=== PATIENT | female | born 1990 | race Caucasian/White ===

== ENCOUNTER 2018-11-22 12:20 | Emergency (ER) | payer OTHER ==
[2018-11-22 12:38] VITALS: BP 143/84; PULSE 98; RESP 16; TEMP 98.9
--- NOTE | 2018-11-22 13:04 | ED ---
ENT HPI - General Chief complaint: ENT Stated complaint: Poss strep throat Time Seen by Provider: 11/22/18 12:34 Source: patient Mode of arrival: ambulatory Limitations: no limitations - History of Present Illness Initial comments: Patient is a 28-year-old female presenting to the emergency department with a chief complaint of a sore throat. Patient reports her symptoms began about 3 days ago with no improvement. She reports she had a fever home and chills but never actually obtain a temperature. Patient reports she was taking [id number] analgesics minimal improve. Patient denies a cough. Patient does report bilateral clear rhinorrhea but denies any otalgia or sinus tenderness. Patient denies any nausea, vomiting, diarrhea, abdominal pain, back pain, chest pain, shortness of breath, cough or a rash. Patient denies any changes in voice. Patient denies any drooling or difficulty breathing. - Related Data Previous Rx's Medication Instructions Recorded Amoxicillin 500 mg PO BID #20 capsule 11/22/18 Allergies Allergy/AdvReac Type Severity Reaction Status Date / Time No Known Allergies Allergy Verified 11/22/18 12:38 Review of Systems ROS Statement: Those systems with pertinent positive or pertinent negative responses have been documented in the HPI. ROS Other: All systems not noted in ROS Statement are negative. Past Medical History Past Medical History: Cancer Additional Past Medical History / Comment(s): thyroid cancer History of Any Multi-Drug Resistant Organisms: None Reported Past Surgical History: Section Additional Past Surgical History / Comment(s): thyroidectomy Past Psychological History: No Psychological Hx Reported Smoking Status: Current some day smoker Past Alcohol Use History: None Reported Past Drug Use History: None Reported General Exam Limitations: no limitations General appearance: alert, in no apparent distress Head exam: Present: atraumatic, normocephalic, normal inspection Eye exam: Present: normal appearance Pupils: Present: normal accommodation ENT exam: Present: normal exam, mucous membranes moist, TM's normal bilaterally, normal external ear exam. Absent: normal oropharynx (Bilateral enlarged tonsils with erythema. Bilateral tonsillar exudates. No uvular deviation. No signs of peritonsillar abscess.) Neck exam: Present: normal inspection, full ROM, lymphadenopathy (Anterior cervical) Course Vital Signs 11/22/18 12:34 Temperature 98.9 F Pulse Rate 98 Respiratory 16 Rate Blood Pressure 143/84 O2 Sat by Pulse 99 Oximetry Medical Decision Making - Medical Decision Making Patient is a 28-year-old male presenting to the emergency department with a chief complaint of a sore throat 3 days. Patient initially developed upper respiratory symptoms of rhinorrhea. Patient reports fever chills but never actually obtained are temperature. There is no changes in voice, drooling or any rashes. Physical examination there appears to be anterior cervical lymph nodes, bilateral low enlarged erythematous tonsils with exudates. Patient does fit the CENTOR criteria for strep pharyngitis. No rapid strep is necessary at this time because this is not going to change the treatment plan. Patient will be discharged with amoxicillin. I suspect any signs of peritonsillar abscesses due to no uvular deviation, one-sided tonsillar swelling or any changes in voice. Patient advised to follow-up with primary care. Strict return parameters were thoroughly discussed the patient was understanding and agreeable. Case discussed with physician. Disposition Clinical Impression: Strep pharyngitis Disposition: HOME SELF-CARE Condition: Stable Instructions (If sedation given, give patient instructions): Strep Throat (DC) Additional Instructions: Please see prescribe medication as directed. Please follow up with primary care. Please return to emergency department if symptoms worsen. Prescriptions: Amoxicillin 500 mg PO BID #20 capsule Is patient prescribed a controlled substance at d/c from ED?: No Referrals: Marcy Perry MD [Primary Care Provider] - 1-2 days Time of Disposition: 13:04
== END 2018-11-22 13:20 | disposition home or self-care (01) ==
LOC: EC 12:20
DX: J02.0 Streptococcal pharyngitis (principal); J35.1 Hypertrophy of tonsils; F17.200 Nicotine dependence, unspecified, uncomplicated; Z85.850 Personal history of malignant neoplasm of thyroid; Z90.89 Acquired absence of other organs
CPT/HCPCS: 99282

== ENCOUNTER → 2019-10-22 | Outpatient (CLI) | payer OTHER ==
--- NOTE | 2019-10-22 11:26 | US ---
EXAMINATION TYPE: US abdomen complete DATE OF EXAM: 10/22/2019 COMPARISON: NONE CLINICAL HISTORY: 29-year-old female R10.12 Left upper quad pain. x 1 year TECHNIQUE: Multiple sonographic images of the abdomen are obtained. FINDINGS: EXAM MEASUREMENTS: Liver Length: 16.5 cm Gallbladder Wall: 0.1 cm CBD: 0.3 cm Spleen: 9.0 cm Right Kidney: 12.0 x 5.8 x 5.1 cm Left Kidney: 12.9 x 6.1 x 5.7 cm Pancreas: Partially Obscured by bowel gas. The visualized pancreatic head and neck show no gross abn ormality. Liver: Echogenic and attenuating. This secondarily limits assessment for focal lesions. Gallbladder: No stones seen Evidence for sonographic Fuller's sign: No CBD: wnl Spleen: wnl Right Kidney: No hydronephrosis or masses seen Left Kidney: No hydronephrosis or masses seen Upper IVC: wnl Abd Aorta: wnl IMPRESSION: Moderate to severe hepatic steatosis. Correlate with LFTs, low profile, and patient risk factors. Nor mal-sized spleen. No gallstones or biliary ductal dilatation.
== END | disposition home or self-care (01) ==
LOC: RADUSWWP 09:14
PROVIDERS: ATTEND Family Medicine
DX: K76.0 Fatty (change of) liver, not elsewhere classified (principal)
CPT/HCPCS: 76700

== ENCOUNTER → 2020-03-06 | Outpatient (CLI) | payer OTHER ==
--- NOTE | 2020-03-06 11:34 | US ---
EXAMINATION TYPE: US OB >= 14 wk fetus DATE OF EXAM: 03/06/2020 COMPARISON: None CLINICAL HISTORY: Z36.0 encounter for screening TECHNIQUE: GESTATIONAL AGE / DATING Physician Established: (21 weeks/1 days) EDC: 07-16-20 Dates by LMP: LMP unknown Dates by First Scan: No previous at this facility Dates by Current Scan: (20 weeks/5 days) EDC: 07-19-20 SURVEY IUP: Single PLACENTA: Anterior, fundal PREVIA: No Previa CARLY: 10.8 cm CERVICAL LENGTH (transabdominal: norm > 3.0cm): 5.0 cm BIOMETRY PRESENTATION: Breech LIE: Transverse with head maternal Left BPD: 5.1 cm 21 weeks / 2 days HC: 18.6 cm 21 weeks / 0 days AC: 15.7 cm 20 weeks / 6 days FL: 3.4 cm 20 weeks / 5 days ESTIMATED WEIGHT IN GRAMS: 379 grams ESTIMATED WEIGHT IN LBS/OZ: lbs. 13 oz. WEIGHT PERCENTAGE BASED ON ESTABLISHED DATES: 28 % HC/AC: 1.2 FL/AC: 21.7 HEART RATE: 140 bpm RHYTHM: Normal MATERNAL WALL MEASUREMENT: 5 cm from skin to anterior uterine wall (if exam limited due to body habit us). IMPRESSION: Single viable intrauterine .
== END | disposition home or self-care (01) ==
LOC: RADUSWWP 10:14
PROVIDERS: ATTEND Obstetrics & Gynecology
DX: Z36.0 Encounter for antenatal screening for chromosomal anomalies (principal); Z3A.20 20 weeks gestation of pregnancy
CPT/HCPCS: 76805

== ENCOUNTER 2021-02-07 18:41 | Emergency (ER) | payer OTHER ==
--- NOTE | 2021-02-07 21:02 | ED ---
General Adult HPI - General Stated complaint: fever, diarrhea, work covid exposure Source: patient, RN notes reviewed Mode of arrival: ambulatory - History of Present Illness Initial comments: 31-year-old female presents emergency apartment with chief complaint of does not feel well. Patient states she's had mild congestion, sore throat, body aches. Patient is concerned that she may have covid 19. Patient states to be tested work. Patient has no chest pain or nausea vomiting no other complaints. - Related Data Previous Rx's Medication Instructions Recorded Amoxicillin 500 mg PO BID #20 capsule 11/22/18 Allergies Allergy/AdvReac Type Severity Reaction Status Date / Time No Known Allergies Allergy Verified 02/07/21 21:01 Review of Systems ROS Statement: Those systems with pertinent positive or pertinent negative responses have been documented in the HPI. ROS Other: All systems not noted in ROS Statement are negative. Past Medical History Past Medical History: Cancer Additional Past Medical History / Comment(s): thyroid cancer History of Any Multi-Drug Resistant Organisms: None Reported Past Surgical History: Section Additional Past Surgical History / Comment(s): thyroidectomy Past Psychological History: No Psychological Hx Reported Past Alcohol Use History: None Reported Past Drug Use History: None Reported General Exam General appearance: alert, in no apparent distress Head exam: Present: atraumatic, normocephalic, normal inspection Eye exam: Present: normal appearance, PERRL, EOMI. Absent: scleral icterus, conjunctival injection, periorbital swelling ENT exam: Present: normal exam, normal oropharynx, mucous membranes moist Neck exam: Present: normal inspection, full ROM. Absent: tenderness, meningismus, lymphadenopathy Respiratory exam: Present: normal lung sounds bilaterally. Absent: respiratory distress, wheezes, rales, rhonchi, stridor Cardiovascular Exam: Present: regular rate, normal rhythm, normal heart sounds. Absent: systolic murmur, diastolic murmur, rubs, gallop, clicks GI/Abdominal exam: Present: soft, normal bowel sounds. Absent: distended, tenderness, guarding, rebound, rigid Neurological exam: Present: alert Skin exam: Present: warm, dry, intact, normal color. Absent: rash Course Vital Signs 02/07/21 21:02 Temperature 98.9 F Pulse Rate 93 Respiratory 18 Rate Blood Pressure 126/71 O2 Sat by Pulse 100 Oximetry Medical Decision Making - Medical Decision Making Patient's covid 19 test negative. Patient be discharged in stable condition. - Lab Data Lab Results 02/07/21 Range/Units 21:02 Coronavirus (PCR) Not Detected (Not Detectd) Disposition Clinical Impression: Viral illness, Encounter for laboratory testing for COVID-19 virus Disposition: HOME SELF-CARE Condition: Stable Instructions (If sedation given, give patient instructions): Upper Respiratory Infection (ED) Additional Instructions: Please return to the Emergency Department if symptoms worsen or any other concerns. Is patient prescribed a controlled substance at d/c from ED?: No Referrals: Marcy Perry MD [Primary Care Provider] - 1-2 days Time of Disposition: 22:04
[2021-02-07 21:04] VITALS: BP 126/71; PULSE 93; RESP 18; TEMP 98.9
== END 2021-02-07 22:28 | disposition home or self-care (01) ==
LOC: EC 18:41
DX: B34.9 Viral infection, unspecified (principal); Z20.822 Contact with and (suspected) exposure to COVID-19
CPT/HCPCS: 87635; 99284